=== PATIENT | female | born 1960 | race Caucasian/White ===

== ENCOUNTER 2016-11-12 15:44 | Emergency (ER) | payer MEDICARE, MEDICAID ==
[~2016-11-12] VITALS: Ht 165.1 cm; Wt 83.0 kg
[~2016-11-12 15:44] MED LIST: ACET325T51 PO; ALBU2.5V4 INHALATION; ALPH600C3 PO; AMLO-39 PO; ASPI325T32 PO; ATOR20TA65 PO; BENZ9.352 MM; CALC0.257 PO; CALC500T9 PO; CALC600T20 PO; CHOL200025 PO; CITA20TA PO; CYCL10TA9 PO; DEXT1DRO8 LEFT_EYE; DOCU-41 PO; ESTR0.5T4 PO; FERR-74 PO; FLUD0.1T PO; FOLI1TAB18 PO; GABA-502 PO; HYDR-3939 PO; HYDR-4003 PO; HYDR99LO2 TP; INSU100I SQ; INSU100I13 SUBQ; IPRA3AMP IH; KEP500TA PO; LEVO50TA6 PO; LIDO30CR19 TP; LORA0.5T PO; MELA1TAB11 PO; METO100T3 PO; MTH10T PO; OMEP20CA11 PO; OMEP40CA36 PO; ONDA-53 PO; OXYC1TAB24 PO; PHEN200C3 PO; PHEN300C4 PO; POLY17PO6 PO; RANI150C4 PO; ZOLP5TAB6 PO; [UNRECOGNIZED DRUG - CODE] MM
[2016-11-12 15:51] VITALS: BP 167/50; PULSE 73; RESP 12; O2SAT 97
--- NOTE | 2016-11-12 16:07 | ED.REPORT ---
HPI-General Illness Date of Service Nov 12, 2016 ED Provider: Bola Gomez DO The patient is a 56 year old female who is a brittle diabetic with a history of seizure disorder, diastolic heart failure, renal failure on dialysis, hypothyroidism, and HTN presents to the ED due to unusual bloodcount numbers. She was sleeping during dialysis when the staff woke her up and sent her to the ED. She reports she doesn't know why she is here. Pt c/o associated constipation. She cannot tell if she has hematochezia due to her poor vision. She denies chest pain, severe abdominal pain, dysuria and fever. Her triage glucose is 142 which she confirms is lower then usual. Nursing Notes Stated Complaint: LOW BLOOD COUNT Chief Complaint: General Complaint Nursing Notes Reviewed: Yes Allergies: Coded Allergies: Quinolones (Verified Allergy, Severe, 06/28/16) Sulfa (Sulfonamide Antibiotics) (Verified Allergy, Severe, 06/28/16) Scheduled Alpha Lipoic Acid (Alpha Lipoic Acid) 600 Mg Capsule 600 MG PO DAILY Amlodipine (Norvasc) 5 Mg Tablet 10 MG PO DAILY Aspirin (Aspirin) 325 Mg Tablet 325 MG PO DAILY Atorvastatin Calcium (Atorvastatin Calcium) 20 Mg Tablet 20 MG PO HS Calcitriol (Rocaltrol) 0.25 Mcg Capsule 0.25 MCG PO DAILY Calcium Carbonate (Calcium Carbonate) 600 Mg Tablet 600 MG PO BID Calcium Carbonate (Tums) 500 Mg Tab.chew 1,000 MG PO BID DONT TAKE WITH MEALS Cholecalciferol (Vitamin D3) (Vitamin D3) 2,000 Unit Tablet 2,000 UNIT PO DAILY Citalopram Hydrobromide (Celexa) 20 Mg Tablet 20 MG PO DAILY Dextran 70/Hypromellose/Pf (Artificial Tears Drops) 1 Each Droperette 1 DROP LEFT_EYE TID Docusate Sodium (Colace) 100 Mg Capsule 100 MG PO BID Estradiol (Estrace) 0.5 Mg Tablet 0.5 MG PO DAILY Ferrous Sulfate (Feosol) 325 Mg Tablet 325 MG PO DAILY Fludrocortisone Acetate (Fludrocortisone Acetate) 0.1 Mg Tablet 0.1 MG PO BID Folic Acid (Folic Acid) 1 Mg Tablet 1 MG PO DAILY Gabapentin (Gabapentin) 300 Mg Capsule 300 MG PO DAILY Hydralazine (Hydralazine) 25 Mg Tablet 75 MG PO TID Hydrocortisone (Cortisone 1% Lotion) 99 Gm Lotion 1 APPLIC TP BID Insulin Aspart (NovoLOG U-100 Pen) 100 Unit/Ml Insuln.pen Unknown Dose SQ TIDWM BG 151-200= 2 units bg 201-250=4 units bg 251-300=6 units bg 301-350=8 units bg 351-400=10 units bg 401-500=12 units bg 501-600=14 units, recheck bg in 1 hour if still >501 call PCP if BG <75 or >500 notify pcp Insulin Glargine (Lantus U100 Solostar Insulin Pen) 100 Unit/1 Ml Insuln.pen 12 UNIT SUBQ BID Levetiracetam (Keppra) 500 Mg Tablet 500 MG PO BID Levothyroxine (Levothyroxine) 50 Mcg Tablet 50 MCG PO DAILY Lidocaine/Prilocaine (Lidocaine-Prilocaine Cream) 30 Gm Cream..g. 1 APPLIC TP 30min before HD Melatonin/Pyridoxine (Melatonin 3 mg Tablet) 1 Each Tablet 2 EACH PO HS Methadone (Methadone) 10 Mg Tab 10 MG PO BID Metoprolol Tartrate (Metoprolol Tartrate) 100 Mg Tablet 100 MG PO BID Omeprazole (Omeprazole) 20 Mg Capsule.dr 20 MG PO DAILY Omeprazole (Omeprazole) 40 Mg Capsule.dr 40 MG PO DAILY Phenytoin Sodium Extended (Phenytoin Sodium Extended) 200 Mg Capsule 200 MG PO DAILYWL Phenytoin Sodium Extended (Phenytoin Sodium Extended) 300 Mg Capsule 300 MG PO HS Phenytoin Sodium Extended (Phenytoin Sodium Extended) 300 Mg Capsule 300 MG PO QAM Polyethylene Glycol 3350 (Miralax) 17 Gm Powd.pack 17 GM PO DAILY Ranitidine (Ranitidine) 150 Mg Capsule 150 MG PO DAILY Saliva Substitution Combo No.9 (Biotene) 1,000 Ml Mouthwash 15 ML MM PC Zolpidem (Zolpidem) 5 Mg Tablet 5 MG PO HS Scheduled PRN Acetaminophen (Acetaminophen) 325 Mg Tablet 650 MG PO Q4H PRN PRN pain/fever Albuterol Neb Soln (Albuterol Neb Soln) 2.5 Mg/3 Ml Vial.neb 2.5 MG INHALATION QID PRN PRN For Shortness of Breath Benzocaine (Oral Pain Relief) 20 % Gel..gram. 1 APPLIC MM Q4H PRN PRN For Pain Calcium Carbonate (Tums) 500 Mg Tab.chew 1,000 MG PO q4hrs PRN PRN For Dyspepsia or Heartburn Cyclobenzaprine (Cyclobenzaprine) 10 Mg Tablet 10 MG PO TID PRN PRN For Spasm Hydrocodone-Acetaminophen 5-325 mg (Hydrocodone-Acetaminophen 5-325 mg) 1 Each Tablet 1-2 TABLET PO Q4H PRN PRN For Pain Ipratropium/Albuterol Sulfate (Iprat-Albut 0.5-3(2.5) mg/3 mL Inhalant Soln) 3 Ml Ampul.neb 3 ML IH Q6 PRN PRN For Shortness of Breath Lorazepam (Lorazepam) 0.5 Mg Tablet 0.5 MG PO q8 hours PRN PRN For Anxiety Ondansetron (Ondansetron) 4 Mg Tablet 4 MG PO q4 hours PRN PRN For Nausea oxyCODONE-Acetaminophen 5-325 mg (oxyCODONE-Acetaminophen 5-325 mg) 1 Each Tablet 1 TAB PO Q4H PRN PRN For Pain General Time Seen by MD: 15:51 Chief Complaint Other (irregular bloodcount) Hx Obtained From: Patient Arrived By: Walk-in Sudden in Onset?: Yes Onset Occurred: Just prior to arrival Symptom Duration: Since onset Severity: Current: No pain currently Recent Healthcare: Recent doctor visit Similar Sx Previous: Yes Past Medical History Past Medical History From EMR: 1. Diabetes type 1 since age 9 Associated gastroparesis, peripheral neuropathy and retinopathy. 2. Gastroparesis. 3. Hypertension. 4. Hypothyroidism. 5. GERD. 6. Depression and anxiety. 7. 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 That presented as a status epilepticus in 1974 or 1975, with which she was comatose for a week. Apparently, residual effects were chronic seizure disorder and developmental delay, for which she has been on Depakote and Dilantin in the past. 8. Seizure disorder secondary to #7. 9. Peripheral neuropathy with pain and hyperesthesia. 10. History of chronic anemia secondary to heavy menses, for which she had to undergo a OSMEL and BSO. 11. Diastolic heart failure 12. Renal Failure on Dialysis 13. Hypoglycemia Reports: Hyperlipidemia Reports: Urinary tract infection Past Surgical History 1. OSMEL and BSO secondary to bleeding. 2. Right foot surgery. Unclear indications, based on the patient's description. 3. Tonsillectomy. 4. Multiple retinal laser surgeries due to retinal bleeding. 5. Right brachial basilic arteriovenous fistula for dialysis Reports: Tonsillectomy Family History Noncontributory Smoking History Never Smoker Social History [facility] Alcohol Use: Denies alcohol use Drug Use: Denies drug use Other Social History: Lives in [facility], Local resident Ambulatory Status Independent Review of Systems abnormal bloodcount while at dialysis hard stools Full Review of Systems Constitutional: Denies: Fever Respiratory: Reports: Non-productive cough Female: Reports: Urination decreased, Denies: Dysuria Complete sys rev & neg: except as marked. Physical Exam Vital Signs Vital Signs Date Time Temp Pulse Resp B/P Pulse Ox O2 Delivery O2 Flow Rate FiO2 11/12/16 15:51 36.5 73 12 167/50 97 Nasal Cannula 2 Initial VS: Reviewed Head / Eyes: Atraumatic, Normocephalic, PERRL ENT: Mucous membranes moist, Conjunctiva normal, No scleral icterus Neck: Supple, Non-tender, Full range of motion Respiratory: Breath sounds normal, Clear to auscultation, No respiratory distress Cardiovascular: Regular rate & rhythm, Heart sounds normal, Intact distal pulses Abdomen / GI: Soft, Non-tender, No guarding, No rebound, No distention Back: No CVA tenderness Skin: Warm, Dry, No cyanosis Neurologic: Alert, Oriented, Nonfocal Psychiatric: Mood/affect normal, Behavior normal, Normal thought content General/Constitutional: Awake, Alert, Cooperative Appearance / Presentation: Positive: Obese Upper Extremities Upper Extremity / MS: Atraumatic Right arm AV fistula Rectum / Perineum: Atraumatic, Blood - occult heme - Interpretation & Diagnostics Lab Results Interpretation Result Diagram: 11/12/16 1630 Test 11/12/16 16:30 White Blood Count 4.8th/mm3 (3.8-10.1) Red Blood Count 2.76mil/mm3 (3.90-5.20) Hemoglobin 9.0g/dL (12.0-15.6) Hematocrit 26.5% (35.0-46.0) Mean Corpuscular Volume 96.0fL (81-100) Mean Corpuscular Hemoglobin 32.6pg (27.0-35.0) Mean Corpuscular Hemoglobin Concent 34.0% (32.0-37.0) Red Cell Distribution Width 15.4% (12.3-15.4) Platelet Count 269bil/L (150-400) Neutrophils (%) (Auto) 62.0% (40-74) Lymphocytes (%) (Auto) 16.3% (14-46) Monocytes (%) (Auto) 13.2% (4-12) Eosinophils (%) (Auto) 7.7% (0-5) Basophils (%) (Auto) 0.6% (0-3) Re-Eval/Medical Decision Med Decision/Clinical Course This patient has an absence of symptoms or emergent concerns. She was sent to the emergency is department to rule out gastrointestinal bleeding. Her hemoglobin is 9, abdominal exam is very benign and soft, her rectal exam and stool guaiac are both normal without any signs of bleeding. Her electronic console display operator is contacted who agrees with the discharge plan. Return precautions given. Time of Eval: 17:16 Patient Status: Condition unchanged Re-Evaluation/Progress Note: Pt rechecked. Informed pt of diagnosis of anemia of chronic disease and plan for treatment. Pt understands and agrees with plan. F/U and RTER warnings given. All questions addressed. Counseled Regarding: Diagnosis, Lab results, Need for follow-up, When/why to return to ED Discharge & Departure Primary Impression: Anemia of chronic disease Disposition: Home Discharge Condition All VS Reviewed: Yes Condition: Stable Additional Instructions: Based on your rectal exam in your blood counts there is no evidence of active GI bleeding at this time. Follow-up with your electronic console display operator as planned. The ER is always available for any life-threatening concerns. Referrals: Kailey Saavedra MD (PCP) Lauren Attestation Portion of this note were transcribed by Howard Rosario. I, Dr. Gomez, personally performed the history, physical exam, and medical decision-making: I reviewed and confirmed the accuracy for the information in the transcribed note. Signed by: lauren Arellano, 11/12/16 1700 copies to: Kailey Saavedra MD, Timothy Julio SHANNON Nov 12, 2016 16:06 HOWARD ROSARIO Nov 12, 2016 16:20
[2016-11-12 16:40] LABS: BASOPHILS % (AUTO) 0.6 % (0-3); EOSINOPHILS % (AUTO) 7.7 % (0-5); MONOCYTES % (AUTO) 13.2 % (4-12); Mean Corpuscular Hemoglobin 32.6 pg (27.0-35.0); Platelet Count 269 bil/L (150-400)
[2016-11-12 17:34] VITALS: BP 167/50; PULSE 73; RESP 12; O2SAT 97
== END 2016-11-12 18:27 | disposition home or self-care (01) ==
LOC: SED 15:44
DX: E10.22 Type 1 diabetes mellitus with diabetic chronic kidney disease (principal); N18.9 Chronic kidney disease, unspecified; D63.8 Anemia in other chronic diseases classified elsewhere; K59.00 Constipation, unspecified; E10.319 Type 1 diabetes mellitus with unspecified diabetic retinopathy without macular edema; E10.40 Type 1 diabetes mellitus with diabetic neuropathy, unspecified; E10.43 Type 1 diabetes mellitus with diabetic autonomic (poly)neuropathy; E10.649 Type 1 diabetes mellitus with hypoglycemia without coma; I12.9 Hypertensive chronic kidney disease with stage 1 through stage 4 chronic kidney disease, or unspecified chronic kidney disease; K31.84 Gastroparesis; K21.9 Gastro-esophageal reflux disease without esophagitis; E03.9 Hypothyroidism, unspecified; G40.909 Epilepsy, unspecified, not intractable, without status epilepticus; I50.30 Unspecified diastolic (congestive) heart failure; Z95.9 Presence of cardiac and vascular implant and graft, unspecified; Z99.2 Dependence on renal dialysis; Z79.4 Long term (current) use of insulin; Z79.82 Long term (current) use of aspirin; Z88.2 Allergy status to sulfonamides; Z88.1 Allergy status to other antibiotic agents